=== PATIENT | female | born 1930 | race Caucasian/White ===

== ENCOUNTER 2017-07-29 19:52 | Inpatient (IN) | payer MEDICARE, MEDICAID ==
[~2017-07-29] VITALS: Ht 157.5 cm; Wt 61.2 kg
[2017-07-29] MEDS ORDERED: PANTOPRAZOLE 40 MG VIAL IV ONE (20:00)
[2017-07-29] MEDS ORDERED: IV NS 0.9% 500 ML BAG IV ONE (20:00)
[2017-07-29] MEDS ORDERED: WATER FOR INJECTION,STERILE 10 ML ONE (20:17)
[2017-07-29] MEDS ORDERED: PANTOPRAZOLE 40 MG VIAL ONE ×2 (20:17→22:47)
[2017-07-29 20:34] LABS: CALCIUM, SERUM 9.6 mg/dL (8.5-10.1); CARBON DIOXIDE 24 mmol/L (21-32); CHLORIDE 102 mmol/L (98-107); CREATININE 0.9 mg/dL (0.6-1.3); GLUCOSE 295 mg/dL (74-106); POTASSIUM 3.8 mmol/L (3.5-5.1); SODIUM SERUM 136 mmol/L (136-145); UREA NITROGEN, BLOOD 33 mg/dL (7-18)
[2017-07-29 20:40] LABS: ALANINE AMINOTRANSFERASE 18 U/L (12-78); ALBUMIN 3.3 g/dL (3.4-5.0); ALKALINE PHOSPHATASE 163 U/L (46-116); ASPARTATE AMINOTRANSFERASE 19 U/L (15-37); BILIRUBIN,DIRECT 0.1 mg/dL (0.0-0.2); BILIRUBIN,TOTAL 0.4 mg/dL (0.2-1.0)
[2017-07-29 20:44] LABS: BASOPHILS % (AUTO) 0.3 % (0.0-2.0); EOSINOPHILS # (AUTO) 0.4 /CMM (0.0-0.7); EOSINOPHILS % (AUTO) 2.9 % (0.0-6.0); HEMATOCRIT 33 % (33-45); HEMOGLOBIN 10.8 g/dL (11.5-14.8); LYMPHOCYTES # (AUTO) 1.5 /CMM (0.8-4.8); LYMPHOCYTES % (AUTO) 9.9 % (20.0-44.0); MEAN CORPUSCULAR HEMOGLOBIN 28 PG (26.0-33.0); MEAN CORPUSCULAR HGB CONC 33 g/dl (31.0-36.0); MEAN CORPUSCULAR VOLUME 83 fL (82-100); MONOCYTES # (AUTO) 0.6 /CMM (0.1-1.30); MONOCYTES % (AUTO) 3.9 % (2.0-12.0); NEUTROPHILS # (AUTO) 12.5 /CMM (1.8-8.9); PLATELET COUNT (AUTO) 303 /CMM (150-450); RDW COEFFICIENT OF VARIATION 16.8 (11.5-15.0); RED BLOOD CELL COUNT(AUTO) 3.94 MIL/uL (4.0-5.2)
[2017-07-29 20:54] LABS: INR 0.95 (0.85-1.15)
[2017-07-29 20:56] LABS: TROPONIN I < 0.017 ng/mL (0.00-0.056)
[2017-07-29 21:11] LABS: APPEARANCE,URINE Slightly Cloudy (CLEAR); BILIRUBIN,URINE Negative (NEGATIVE); BLOOD, URINE Small Ery/uL (NEGATIVE); COLOR,URINE Yellow (YELLOW); KETONES,URINE Negative (NEGATIVE); LEUKOCYTE ESTERASE ,URINE Large (NEGATIVE); NITRITE, URINE Negative (NEGATIVE); PROTEIN,URINE 30 mg/dl (NEGATIVE); UGLUCOSE Negative (NEGATIVE); UROBILINOGEN,URINE 0.2 EU/dL (0.2)
[2017-07-29] MEDS ORDERED: IV NS 0.9% 1,000 ML IV PRN (21:28)
[2017-07-29] MEDS ORDERED: HYDROCODONE/APAP 5/325MG 1 EACH TABLET PO PRN (21:30)
[2017-07-29] MEDS ORDERED: MAGNESIUM HYDROXIDE 30 ML UDC PO PRN (21:30)
[2017-07-29] MEDS ORDERED: INSULIN REGULAR, HUMAN 100 UNIT/ML 10 ML VIAL SQ ONE (21:30)
[2017-07-29] MEDS ORDERED: Z GUARD REMEDY 2 OZ OINT TP PRN (21:30)
[2017-07-29] MEDS ORDERED: ONDANSETRON HCL/PF 4 MG/2 ML VIAL IVP PRN (21:30)
[2017-07-29] MEDS ORDERED: MAG HYDROX/AL HYDROX/SIMETH 30 ML UDC PO PRN (21:30)
[2017-07-29] MEDS ORDERED: ACETAMINOPHEN 325 MG TABLET PO PRN (21:30)
[2017-07-29] MEDS ORDERED: CIPROFLOXACIN HCL 500 MG TABLET PO ONE (21:30)
[2017-07-29] MEDS ORDERED: CIPROFLOXACIN HCL 500 MG TABLET ONE (21:32)
[2017-07-29] MEDS ORDERED: INSULIN REGULAR, HUMAN 100 UNIT/ML 10 ML VIAL ONE (21:32)
[2017-07-29 21:35] LABS: BACTERIA,URINE Many /HPF (None Seen); SQUAMOUS EPITHELIAL CELL,UR Few /HPF (None Seen); URINE AMORPHOUS PHOSPHATES Moderate /HPF (None Seen); WBC,URINE 21-50 /HPF (0-3)
[2017-07-29 22:00] VITALS: BP 155/78
[2017-07-29] MEDS ORDERED: PANTOPRAZOLE 80 MG in IV NS 0.9% 500 ML IV PRN (22:00)
[2017-07-29] MEDS ORDERED: DEXTROSE 50%-WATER 50 ML DISP.SYRIN IV PRN (22:00)
[2017-07-29] MEDS ORDERED: LEVOFLOXACIN 500 MG /D5W 100ML 500 MG in PREMIX 1 EA IV SCH (22:00)
[2017-07-29] MEDS: BLOOD SUGAR DIAGNOSTIC 1 EACH STRIP IN SCH (22:43)
[2017-07-29] MEDS ORDERED: LEVOFLOXACIN 500 MG /D5W 100ML 100 ML IV ONE (22:47)
[2017-07-29] MEDS ORDERED: ONDANSETRON HCL/PF 4 MG/2 ML VIAL ONE (23:19)
[2017-07-30] MEDS ORDERED: ACET-868 GT (01:40)
[2017-07-30] MEDS ORDERED: AMLO5TAB4 GT (02:10)
[2017-07-30] MEDS ORDERED: NA P133E RC (02:10)
[2017-07-30] MEDS ORDERED: DOCU-159 RC (02:10)
[2017-07-30] MEDS ORDERED: MAGN400O6 GT (02:10)
[2017-07-30 04:00] VITALS: BP 153/79
[2017-07-30 07:07] LABS: BASOPHILS % (AUTO) 0.2 % (0.0-2.0); EOSINOPHILS # (AUTO) 0.1 /CMM (0.0-0.7); EOSINOPHILS % (AUTO) 0.5 % (0.0-6.0); HEMATOCRIT 23 % (33-45); HEMOGLOBIN 9.2 g/dL (11.5-14.8); LYMPHOCYTES % (AUTO) 7.9 % (20.0-44.0); MEAN CORPUSCULAR HEMOGLOBIN 35 PG (26.0-33.0); MEAN CORPUSCULAR HGB CONC 40 g/dl (31.0-36.0); MEAN CORPUSCULAR VOLUME 88 fL (82-100); MONOCYTES # (AUTO) 0.5 /CMM (0.1-1.30); MONOCYTES % (AUTO) 3.9 % (2.0-12.0); NEUTROPHILS # (AUTO) 11.6 /CMM (1.8-8.9); NEUTROPHILS % (AUTO) 87.5 % (43.0-81.0); PLATELET COUNT (AUTO) 272 /CMM (150-450); RDW COEFFICIENT OF VARIATION 17.4 (11.5-15.0); RED BLOOD CELL COUNT(AUTO) 2.63 MIL/uL (4.0-5.2); WHITE BLOOD COUNT (AUTO) 13.3 K/uL (4.3-11.0)
[2017-07-30] MEDS ORDERED: NUT.237L30 GT (07:44)
[2017-07-30] MEDS ORDERED: INSU100V7 SQ (07:44)
[2017-07-30] MEDS ORDERED: TRAM50TA GT (07:44)
[2017-07-30] MEDS ORDERED: SERT25TA GT (07:44)
[2017-07-30] MEDS ORDERED: CILO100T GT (07:44)
[2017-07-30] MEDS ORDERED: BLOO-668 IN (07:44)
[2017-07-30] MEDS ORDERED: PANT40SU2 GT (07:44)
[2017-07-30] MEDS ORDERED: HYDR-3326 GT (07:44)
[2017-07-30 07:53] LABS: CALCIUM, SERUM 8.4 mg/dL (8.5-10.1); CARBON DIOXIDE 23 mmol/L (21-32); CHLORIDE 109 mmol/L (98-107); CREATININE 0.9 mg/dL (0.6-1.3); GLUCOSE 127 mg/dL (74-106); PHOSPHORUS 3.1 mg/dL (2.5-4.9); POTASSIUM 4.2 mmol/L (3.5-5.1); SODIUM SERUM 142 mmol/L (136-145); UREA NITROGEN, BLOOD 28 mg/dL (7-18)
[2017-07-30 08:00] VITALS: BP 130/72
[2017-07-30] MEDS: BLOOD SUGAR DIAGNOSTIC 1 EACH STRIP IN SCH ×4 (08:11→21:14)
[2017-07-30 12:00] VITALS: BP 130/72
[2017-07-30] MEDS ORDERED: DOCUSATE SODIUM 100 MG CAPSULE PO PRN (12:30)
[2017-07-30] MEDS ORDERED: NA PHOS,M-B/NA PHOS,DI-BA 1 EA ENEMA RC PRN (12:30)
[2017-07-30] MEDS ORDERED: ACETAMINOPHEN 325 MG TABLET PO PRN (12:30)
[2017-07-30] MEDS: AMLODIPINE BESYLATE 5 MG TABLET GT SCH (12:30)
[2017-07-30] MEDS ORDERED: MAGNESIUM HYDROXIDE 30 ML UDC GT PRN (12:30)
[2017-07-30] MEDS ORDERED: IV D5/ 0.9% NACL 1,000 ML IV ONE (15:00)
[2017-07-30] MEDS: PANTOPRAZOLE 40 MG VIAL IV SCH ×2 (15:14→22:17)
[2017-07-30 16:00] VITALS: BP 120/42
[2017-07-30 20:00] VITALS: BP 108/46
[2017-07-30] MEDS: LEVOFLOXACIN 500 MG /D5W 100ML 500 MG in PREMIX 1 EA IV SCH (21:05)
[2017-07-31] VITALS (7 sets, daily range): BP systolic 90–146; BP diastolic 11–79
[2017-07-31] MEDS: BLOOD SUGAR DIAGNOSTIC 1 EACH STRIP IN SCH ×4 (07:20→21:27)
[2017-07-31] MEDS: AMLODIPINE BESYLATE 5 MG TABLET GT SCH (08:49)
[2017-07-31] MEDS: PANTOPRAZOLE 40 MG VIAL IV SCH ×2 (08:52→20:56)
[2017-07-31] MEDS: INSULIN REGULAR, HUMAN 100 UNIT/ML 3 ML VIAL SQ PRN ×3 (12:32→21:27)
[2017-07-31] MEDS: METRONIDAZOLE 500MG/ NS 100ML 500 MG in PREMIX 1 EA IV SCH ×2 (13:51→20:57)
[2017-07-31] MEDS ORDERED: diphenhydrAMINE HCL ELIX 25 MG/10 ML UDC GT PRN (16:00)
[2017-07-31] MEDS: VANCOMYCIN HCL 125 MG/2.5 ML ORAL.SUSP GT SCH (17:52)
[2017-07-31] MEDS: GLYTROL 1,000 ML BAG GT PRN (20:46)
[2017-07-31] MEDS: LEVOFLOXACIN 500 MG /D5W 100ML 500 MG in PREMIX 1 EA IV SCH (22:21)
[2017-08-01] VITALS: BP 143/47
[2017-08-01] MEDS: VANCOMYCIN HCL 125 MG/2.5 ML ORAL.SUSP GT SCH ×5 (00:05→23:18)
[2017-08-01] MEDS: IV D5/ 0.9% NACL 1,000 ML IV PRN ×2 (00:06→16:41)
[2017-08-01 04:00] VITALS: BP 142/44
[2017-08-01] MEDS: METRONIDAZOLE 500MG/ NS 100ML 500 MG in PREMIX 1 EA IV SCH ×3 (05:02→21:20)
[2017-08-01 08:00] VITALS: BP 117/45
[2017-08-01] MEDS: BLOOD SUGAR DIAGNOSTIC 1 EACH STRIP IN SCH ×4 (08:09→21:23)
[2017-08-01] MEDS: AMLODIPINE BESYLATE 5 MG TABLET GT SCH (08:09)
[2017-08-01] MEDS: PANTOPRAZOLE 40 MG VIAL IV SCH ×2 (08:09→16:41)
[2017-08-01] MEDS: SUCRALFATE 1 G/10 ML UDC GT SCH ×2 (11:40→16:41)
[2017-08-01 12:00] VITALS: BP 129/45
[2017-08-01] MEDS: INSULIN REGULAR, HUMAN 100 UNIT/ML 3 ML VIAL SQ PRN ×2 (12:15→21:31)
[2017-08-01 13:15] LABS: BASOPHILS % (AUTO) 0.1 % (0.0-2.0); EOSINOPHILS # (AUTO) 0.9 /CMM (0.0-0.7); EOSINOPHILS % (AUTO) 11.4 % (0.0-6.0); HEMATOCRIT 27 % (33-45); HEMOGLOBIN 8.6 g/dL (11.5-14.8); LYMPHOCYTES # (AUTO) 1.3 /CMM (0.8-4.8); LYMPHOCYTES % (AUTO) 16.5 % (20.0-44.0); MEAN CORPUSCULAR HEMOGLOBIN 27 PG (26.0-33.0); MEAN CORPUSCULAR VOLUME 84 fL (82-100); MONOCYTES # (AUTO) 0.5 /CMM (0.1-1.30); MONOCYTES % (AUTO) 6.7 % (2.0-12.0); NEUTROPHILS # (AUTO) 5.1 /CMM (1.8-8.9); NEUTROPHILS % (AUTO) 65.3 % (43.0-81.0); PLATELET COUNT (AUTO) 215 /CMM (150-450); RDW COEFFICIENT OF VARIATION 17.8 (11.5-15.0); RED BLOOD CELL COUNT(AUTO) 3.24 MIL/uL (4.0-5.2); WHITE BLOOD COUNT (AUTO) 7.8 K/uL (4.3-11.0)
[2017-08-01 13:18] LABS: MEAN CORPUSCULAR HGB CONC 32 g/dl (31.0-36.0)
[2017-08-01] MEDS: MUPIROCIN OINT 2% 22 GM TUBE SCH ×2 (14:23→20:40)
[2017-08-01 16:00] VITALS: BP 140/53
[2017-08-01] MEDS: GLYTROL 1,000 ML BAG GT PRN (16:41)
[2017-08-01 21:05] VITALS: BP 129/87
[2017-08-01] MEDS: LEVOFLOXACIN 500 MG /D5W 100ML 500 MG in PREMIX 1 EA IV SCH (22:12)
[2017-08-02 04:00] VITALS: BP 114/77
[2017-08-02] MEDS: VANCOMYCIN HCL 125 MG/2.5 ML ORAL.SUSP GT SCH ×3 (05:22→17:03)
[2017-08-02] MEDS: METRONIDAZOLE 500MG/ NS 100ML 500 MG in PREMIX 1 EA IV SCH ×3 (05:22→21:40)
[2017-08-02] MEDS: BLOOD SUGAR DIAGNOSTIC 1 EACH STRIP IN SCH ×4 (05:26→21:42)
[2017-08-02] MEDS: INSULIN REGULAR, HUMAN 100 UNIT/ML 3 ML VIAL SQ PRN ×3 (05:30→21:44)
[2017-08-02] MEDS: GLYTROL 1,000 ML BAG GT PRN (05:31)
[2017-08-02 07:56] LABS: BASOPHILS % (AUTO) 0.4 % (0.0-2.0); EOSINOPHILS # (AUTO) 1.4 /CMM (0.0-0.7); EOSINOPHILS % (AUTO) 15.2 % (0.0-6.0); HEMATOCRIT 29 % (33-45); HEMOGLOBIN 9.3 g/dL (11.5-14.8); LYMPHOCYTES # (AUTO) 1.1 /CMM (0.8-4.8); LYMPHOCYTES % (AUTO) 12.5 % (20.0-44.0); MEAN CORPUSCULAR HEMOGLOBIN 27 PG (26.0-33.0); MEAN CORPUSCULAR VOLUME 85 fL (82-100); MONOCYTES # (AUTO) 0.5 /CMM (0.1-1.30); MONOCYTES % (AUTO) 5.9 % (2.0-12.0); PLATELET COUNT (AUTO) 244 /CMM (150-450); RED BLOOD CELL COUNT(AUTO) 3.45 MIL/uL (4.0-5.2); WHITE BLOOD COUNT (AUTO) 9.1 K/uL (4.3-11.0)
[2017-08-02 07:58] LABS: MEAN CORPUSCULAR HGB CONC 32 g/dl (31.0-36.0)
[2017-08-02 08:00] VITALS: BP 93/70
[2017-08-02] MEDS: SUCRALFATE 1 G/10 ML UDC GT SCH ×3 (08:59→16:58)
[2017-08-02] MEDS: PANTOPRAZOLE 40 MG VIAL IV SCH ×2 (09:00→16:58)
[2017-08-02] MEDS: AMLODIPINE BESYLATE 5 MG TABLET GT SCH (09:00)
[2017-08-02] MEDS: MUPIROCIN OINT 2% 22 GM TUBE SCH ×2 (09:01→21:43)
[2017-08-02] MEDS: IV D5/ 0.9% NACL 1,000 ML IV PRN (13:32)
[2017-08-02 16:00] VITALS: BP 139/99
[2017-08-02 20:00] VITALS: BP 137/54
[2017-08-02 20:24] VITALS: BP 137/54
[2017-08-02] MEDS: LEVOFLOXACIN 500 MG /D5W 100ML 500 MG in PREMIX 1 EA IV SCH (22:55)
[2017-08-03] MEDS: VANCOMYCIN HCL 125 MG/2.5 ML ORAL.SUSP GT SCH ×4 (00:31→17:00)
[2017-08-03] MEDS: METRONIDAZOLE 500MG/ NS 100ML 500 MG in PREMIX 1 EA IV SCH (05:07)
[2017-08-03] MEDS: GLYTROL 1,000 ML BAG GT PRN (05:08)
[2017-08-03] MEDS: BLOOD SUGAR DIAGNOSTIC 1 EACH STRIP IN SCH ×4 (06:43→22:14)
[2017-08-03] MEDS: INSULIN REGULAR, HUMAN 100 UNIT/ML 3 ML VIAL SQ PRN ×4 (06:44→23:08)
[2017-08-03 08:00] VITALS: BP 150/77
[2017-08-03 08:08] LABS: CALCIUM, SERUM 8.1 mg/dL (8.5-10.1); CARBON DIOXIDE 19 mmol/L (21-32); CHLORIDE 110 mmol/L (98-107); CREATININE 0.6 mg/dL (0.6-1.3); GLUCOSE 157 mg/dL (74-106); POTASSIUM 2.9 mmol/L (3.5-5.1); SODIUM SERUM 141 mmol/L (136-145); UREA NITROGEN, BLOOD 13 mg/dL (7-18)
[2017-08-03] MEDS: PANTOPRAZOLE 40 MG VIAL IV SCH ×2 (08:37→16:36)
[2017-08-03] MEDS: SUCRALFATE 1 G/10 ML UDC GT SCH ×3 (08:37→16:36)
[2017-08-03] MEDS: AMLODIPINE BESYLATE 5 MG TABLET GT SCH (08:37)
[2017-08-03] MEDS: MUPIROCIN OINT 2% 22 GM TUBE SCH ×2 (08:38→22:13)
[2017-08-03 08:52] LABS: BASOPHILS % (AUTO) 0.2 % (0.0-2.0); EOSINOPHILS # (AUTO) 1.3 /CMM (0.0-0.7); EOSINOPHILS % (AUTO) 14.4 % (0.0-6.0); HEMATOCRIT 26 % (33-45); HEMOGLOBIN 9.3 g/dL (11.5-14.8); LYMPHOCYTES # (AUTO) 1.5 /CMM (0.8-4.8); LYMPHOCYTES % (AUTO) 16.9 % (20.0-44.0); MEAN CORPUSCULAR HEMOGLOBIN 32 PG (26.0-33.0); MEAN CORPUSCULAR HGB CONC 35 g/dl (31.0-36.0); MEAN CORPUSCULAR VOLUME 91 fL (82-100); MONOCYTES # (AUTO) 0.6 /CMM (0.1-1.30); MONOCYTES % (AUTO) 6.3 % (2.0-12.0); NEUTROPHILS # (AUTO) 5.7 /CMM (1.8-8.9); NEUTROPHILS % (AUTO) 62.2 % (43.0-81.0); PLATELET COUNT (AUTO) 262 /CMM (150-450); RDW COEFFICIENT OF VARIATION 17.6 (11.5-15.0); WHITE BLOOD COUNT (AUTO) 9.2 K/uL (4.3-11.0)
[2017-08-03] MEDS: POTASSIUM CHLORIDE 20 MEQ POWDER PACKET GT SCH ×3 (11:48→13:21)
[2017-08-03 12:13] LABS: EOSINOPHILS % (MANUAL) 25 % (0-4); LYMPHOCYTES % (MANUAL) 13 % (16-48); MONOCYTES % (MANUAL) 3 % (0-11.0); NEUTROPHILS % (MANUAL) 59 (42-76)
[2017-08-03] MEDS: METRONIDAZOLE 500 MG TABLET GT SCH ×2 (12:25→22:13)
[2017-08-03] MEDS: IV D5/ 0.9% NACL 1,000 ML IV PRN (13:21)
[2017-08-03 16:00] VITALS: BP 128/51
[2017-08-03 20:00] VITALS: BP 133/53
[2017-08-03] MEDS ORDERED: LEVOFLOXACIN (500MG) 500 MG TABLET GT SCH (22:00)
[2017-08-04] MEDS: VANCOMYCIN HCL 125 MG/2.5 ML ORAL.SUSP GT SCH ×3 (00:53→12:17)
[2017-08-04] MEDS: GLYTROL 1,000 ML BAG GT PRN (02:07)
[2017-08-04] MEDS: IV D5/ 0.9% NACL 1,000 ML IV PRN (03:53)
[2017-08-04] MEDS: METRONIDAZOLE 500 MG TABLET GT SCH ×2 (04:54→12:16)
[2017-08-04 07:43] LABS: CALCIUM, SERUM 7.6 mg/dL (8.5-10.1); CARBON DIOXIDE 20 mmol/L (21-32); CHLORIDE 112 mmol/L (98-107); CREATININE 0.6 mg/dL (0.6-1.3); GLUCOSE 218 mg/dL (74-106); MAGNESIUM 1.8 mg/dL (1.8-2.4); POTASSIUM 3.8 mmol/L (3.5-5.1); SODIUM SERUM 140 mmol/L (136-145); UREA NITROGEN, BLOOD 15 mg/dL (7-18)
[2017-08-04 08:00] VITALS: BP 117/29
[2017-08-04] MEDS: PANTOPRAZOLE 40 MG VIAL IV SCH (08:15)
[2017-08-04] MEDS: BLOOD SUGAR DIAGNOSTIC 1 EACH STRIP IN SCH ×2 (08:15→12:17)
[2017-08-04] MEDS: SUCRALFATE 1 G/10 ML UDC GT SCH ×2 (08:15→12:16)
[2017-08-04 08:16] VITALS: BP 117/79
[2017-08-04] MEDS: MUPIROCIN OINT 2% 22 GM TUBE SCH (08:16)
[2017-08-04] MEDS: AMLODIPINE BESYLATE 5 MG TABLET GT SCH (08:16)
[2017-08-04 08:17] LABS: HEMOGLOBIN 8.4 g/dL (11.5-14.8); LYMPHOCYTES # (AUTO) 1.2 /CMM (0.8-4.8)
[2017-08-04 08:36] LABS: BASOPHILS % (AUTO) 0.6 % (0.0-2.0); EOSINOPHILS # (AUTO) 1.4 /CMM (0.0-0.7); EOSINOPHILS % (AUTO) 18.4 % (0.0-6.0); HEMATOCRIT 26 % (33-45); LYMPHOCYTES % (AUTO) 16.2 % (20.0-44.0); MEAN CORPUSCULAR HEMOGLOBIN 27 PG (26.0-33.0); MEAN CORPUSCULAR VOLUME 84 fL (82-100); MONOCYTES # (AUTO) 0.6 /CMM (0.1-1.30); MONOCYTES % (AUTO) 7.9 % (2.0-12.0); NEUTROPHILS # (AUTO) 4.2 /CMM (1.8-8.9); NEUTROPHILS % (AUTO) 56.9 % (43.0-81.0); PLATELET COUNT (AUTO) 153 /CMM (150-450); RDW COEFFICIENT OF VARIATION 18.6 (11.5-15.0); RED BLOOD CELL COUNT(AUTO) 3.13 MIL/uL (4.0-5.2); WHITE BLOOD COUNT (AUTO) 7.4 K/uL (4.3-11.0)
[2017-08-04 08:38] LABS: MEAN CORPUSCULAR HGB CONC 32 g/dl (31.0-36.0)
== END 2017-08-04 16:43 | DRG 391 ==
LOC: ER 19:53 → TELE1 21:30 → MEDSG1 08-01 12:44
PROVIDERS: ADMIT Internal Medicine; ATTEND Internal Medicine
PROC: 0DD68ZX Extraction of Stomach, Via Natural or Artificial Opening Endoscopic, Diagnostic (ICD-10-PCS; 2017-08-01)
PROC: 0DD58ZX Extraction of Esophagus, Via Natural or Artificial Opening Endoscopic, Diagnostic (ICD-10-PCS; principal; 2017-08-01 10:25)
DX: K29.70 Gastritis, unspecified, without bleeding (principal); G93.40 Encephalopathy, unspecified; E44.0 Moderate protein-calorie malnutrition; A04.72 Enterocolitis due to Clostridium difficile, not specified as recurrent; R53.2 Functional quadriplegia; D68.59 Other primary thrombophilia; N39.0 Urinary tract infection, site not specified; D63.8 Anemia in other chronic diseases classified elsewhere; E11.9 Type 2 diabetes mellitus without complications; E78.5 Hyperlipidemia, unspecified; F03.90 Unspecified dementia, unspecified severity, without behavioral disturbance, psychotic disturbance, mood disturbance, and anxiety; I10 Essential (primary) hypertension; Z88.0 Allergy status to penicillin; Z89.511 Acquired absence of right leg below knee; Z87.11 Personal history of peptic ulcer disease; I25.10 Atherosclerotic heart disease of native coronary artery without angina pectoris; I70.0 Atherosclerosis of aorta; L98.9 Disorder of the skin and subcutaneous tissue, unspecified; Z79.82 Long term (current) use of aspirin; F29 Unspecified psychosis not due to a substance or known physiological condition; K21.0 Gastro-esophageal reflux disease with esophagitis; R13.10 Dysphagia, unspecified; B96.89 Other specified bacterial agents as the cause of diseases classified elsewhere; Z22.322 Carrier or suspected carrier of Methicillin resistant Staphylococcus aureus
CPT/HCPCS: 36415; 71045-TC; 80048-TC; 80076-TC; 81000-TC; 82272-TC; 82962-TC; 83735-TC; 84100-TC; 84484-TC; 85025-TC; 85730-TC; 86850-TC; 87081-TC; 87086-TC; A4216; A4606; C9113; J1815; J1956; J2405; J3490; J7030; J7040; J7042; Q0163; Z7610

== ENCOUNTER 2018-03-31 04:09 | Inpatient (IN) | payer MEDICARE, MEDICAID ==
[2018-03-31] VITALS (128 sets, daily range): BP systolic 57–151; BP diastolic 12–81
[~2018-03-31] VITALS: Ht 154.9 cm; Wt 56.7 kg
[~2018-03-31 04:09] MED LIST: ACET-868 GT; AMLO5TAB4 GT; BLOO-668 IN; CILO100T GT; DOCU-159 RC; HYDR-3974 GT; INSU100V7 SQ; MAGN400O6 GT; NA P133E RC; NUT.237L30 GT; PANT40SU2 GT; SERT25TA GT; TRAM50TA GT
--- NOTE | 2018-03-31 04:12 | NUR ---
BIB RA FROM SNF C/C OF HYPOTENSION. [place] SPEAKING ONLY. AA/OX1 TO NAME ONLY PER CARDIOPULMONARY SUPERVISOR, REPETATIVE STATEMENTS. NO S/S OF SOB. SKIN JAUNDICE, WARM, MOIST. NG TUBE PRESENT. SACRAL BEDSORE PRESENT. BRIGHT BLOOD STOOL PRESENT. YELLOW CLOUDY URINE NOTED. RT LEG AMPUTATION. LT LEG CONTRACTURE. POSITIVE HYPOTENSION SBP 87, ST 105. RESPIRATION 35 REGULAR. O2SAT 96% ROOM. 1L NS INITIATED PER ORDERED BY MD. WILL CONTINUE TO MONITOR.
[2018-03-31 04:56] LABS: APPEARANCE,URINE TURBID (CLEAR); COLOR,URINE YELLOW (YELLOW)
[2018-03-31 04:57] LABS: BILIRUBIN,URINE NEGATIVE (NEGATIVE); BLOOD, URINE 3+ Ery/uL (NEGATIVE); KETONES,URINE NEGATIVE (NEGATIVE); PH,URINE 7.5 (5.0-8.0); PROTEIN,URINE 1+ mg/dl (NEGATIVE); UGLUCOSE NEGATIVE (NEGATIVE); UROBILINOGEN,URINE 0.2 EU/dL (0.2)
[2018-03-31 04:58] LABS: LEUKOCYTE ESTERASE ,URINE 3+ (NEGATIVE); NITRITE, URINE POSITIVE (NEGATIVE)
--- NOTE | 2018-03-31 04:59 | NUR ---
XRAY AT BEDSIDE
[2018-03-31] MEDS ORDERED: IV NS 0.9% 1,000 ML BAG IV ONE ×4 (05:00→09:25)
[2018-03-31 05:07] LABS: CALCIUM, SERUM 10.2 mg/dL (8.5-10.1); CARBON DIOXIDE 12 mmol/L (21-32); CHLORIDE 102 mmol/L (98-107); CREATININE 3.1 mg/dL (0.6-1.3); GLUCOSE 134 mg/dL (74-106); INR 1.19 (0.87-1.13); SODIUM SERUM 143 mmol/L (136-145); UREA NITROGEN, BLOOD 50 mg/dL (7-18)
[2018-03-31 05:10] LABS: BACTERIA,URINE Few /HPF (None Seen); SQUAMOUS EPITHELIAL CELL,UR Few /HPF (None Seen); WBC,URINE TOO NUMEROUS TO COUN /HPF (0-3)
[2018-03-31 05:12] LABS: ALKALINE PHOSPHATASE 156 U/L (46-116); ASPARTATE AMINOTRANSFERASE 110 U/L (15-37); BILIRUBIN,DIRECT 0.2 mg/dL (0.0-0.2); BILIRUBIN,TOTAL 0.6 mg/dL (0.2-1.0); TOTAL PROTEIN, SERUM 7.3 g/dL (6.4-8.2)
[2018-03-31] MEDS ORDERED: PANTOPRAZOLE 40 MG VIAL ONE (05:16)
[2018-03-31] MEDS ORDERED: LEVOFLOXACIN 750 MG /D5W 150ML 150 ML IV ONE ×2 (05:16→05:30)
[2018-03-31] MEDS ORDERED: NOREPINEPHRINE 4 MG/4 ML AMPUL IV ONE (05:17)
[2018-03-31] MEDS ORDERED: ACETAMINOPHEN 650 MG/SUPP.RECT RC ONE ×2 (05:18→05:30)
[2018-03-31 05:20] LABS: TROPONIN I 0.102 ng/mL (0.00-0.056)
[2018-03-31] MEDS ORDERED: NOREPINEPHRINE 8 MG in IV D5W 500 ML IV PRN ×2 (05:30→07:00)
[2018-03-31] MEDS ORDERED: CEFTRIAXONE 1GM BAG (ER ONLY) 50 ML IV ONE (05:30)
[2018-03-31] MEDS ORDERED: PANTOPRAZOLE 80 MG in IV NS 0.9% 500 ML IV PRN (05:30)
[2018-03-31] MEDS ORDERED: PANTOPRAZOLE 80 MG in IV NS 0.9% 100 ML IV ONE (05:30)
--- NOTE | 2018-03-31 05:30 | NUR ---
INITIATED NOREPI DRIP PER MD AT 12MCG/ MIN.
[2018-03-31 05:34] LABS: ALANINE AMINOTRANSFERASE 69 U/L (12-78); EOSINOPHILS % (AUTO) 0.1 % (0.0-6.0); HEMATOCRIT 38 % (33-45); LYMPHOCYTES % (AUTO) 2.2 % (20.0-44.0); MEAN CORPUSCULAR HGB CONC 32 g/dl (31.0-36.0); MEAN CORPUSCULAR VOLUME 85 fL (82-100); MONOCYTES # (AUTO) 0.1 /CMM (0.1-1.30); MONOCYTES % (AUTO) 0.2 % (2.0-12.0); NEUTROPHILS # (AUTO) 43.8 /CMM (1.8-8.9); NEUTROPHILS % (AUTO) 97.5 % (43.0-81.0); PLATELET COUNT (AUTO) 104 /CMM (150-450); RDW COEFFICIENT OF VARIATION 19.5 (11.5-15.0); RED BLOOD CELL COUNT(AUTO) 4.43 MIL/uL (4.0-5.2)
[2018-03-31 05:35] LABS: WHITE BLOOD COUNT (AUTO) 44.9 K/uL (4.3-11.0)
--- NOTE | 2018-03-31 05:45 | NUR ---
RT NECK INTERAL JUGULAR CENTRAL LINE INSERTED BY .
--- NOTE | 2018-03-31 05:46 | NUR ---
NOREPI RUNNING THROUGHT CENTRAL LINE
[2018-03-31 05:51] LABS: BAND % (MANUAL) 12 % (0.0-5.0); LYMPHOCYTES % (MANUAL) 3 % (16-48); METAMYELOCYTES % 3 % (0-0); MYELOCYTES % 1 % (0-0); NEUTROPHILS % (MANUAL) 81 (42-76)
--- NOTE | 2018-03-31 06:02 | NUR ---
Vikas bradley in [facility] - 03/31/18 at 0603 by AALIYAH 16 [place] OCCITAN CATHETER INSERTED DRAINING FREELY TO GRAVITY.
[2018-03-31] MEDS ORDERED: CEFTRIAXONE 1 G VIAL ONE (06:05)
--- NOTE | 2018-03-31 06:25 | NUR ---
PRN/ICU-ADMITTED THIS 88 Y/O FEMALE FROM ER PER ACLS PROTOCOL, ACCOMPANIED BY ER STAFF. ROUTINE ICU ADMISSION CARE INITIATED. NURSING FOCUS: INFECTION R/T DIAGNOSIS OF SEPSIS. PT. AWAKE, CONFUSED, MONGOLIAN SPEAKING. PT. UNKEPT,W/ LARGE AMOUNT OF PASTY FOUL SMELLING BM. COMPLETE BED BATH GIVEN. NOTED SKIN ISSUES. REFER TO WOUND PHOTO FOR DETAILS. WILL CONTINUE TO MONITOR PER PROTOCOL.
--- NOTE | 2018-03-31 06:27 | NUR ---
PT TRANSPORTED TO ICU STABLE CONDITION. ABNER ENDORSED TO ASSISTANT WINEMAKERFRANCIS WALLACE FOR ADMIN. PT TRANSPORTED VIA ACLS PROTOCOL.
[2018-03-31] MEDS ORDERED: ONDANSETRON HCL/PF 4 MG/2 ML VIAL IVP PRN (07:00)
[2018-03-31] MEDS ORDERED: ACETAMINOPHEN 650 MG/SUPP.RECT RC PRN (07:00)
[2018-03-31] MEDS ORDERED: IV NS 0.9% 1,000 ML IV ONE (07:00)
--- NOTE | 2018-03-31 07:00 | NUR ---
ICU/RN- CALM, NOT IN ANY DISTRESS. REPORT GIVEN TO RN TYLER, W/ ACNP CHUCKY HERE W/ ORDER TO DO A STAT CT OF ABD./PELVIS W/O CONTRAST DUE TO PT. C/O ABDOMINAL PAIN.
[2018-03-31 07:20] LABS: MAGNESIUM 2.2 mg/dL (1.8-2.4); PHOSPHORUS 3.7 mg/dL (2.5-4.9)
[2018-03-31] MEDS ORDERED: FEE PK DOSING 1 MIN EA MC ONE (07:36)
[2018-03-31] MEDS ORDERED: MEROPENEM 500 MG in IV NS 0.9% 100 ML IV SCH (08:00)
[2018-03-31] MEDS ORDERED: MEROPENEM 500 MG in IV NS 0.9% 50 ML IV SCH ×2 (08:13→09:00)
[2018-03-31 08:49] LABS: ABG BASE EXCESS -23.2 mmol/L; ABG OXYGEN SATURATION 93.9 % (92.0-98.5); ABG PCO2 37.6 mmHg (35.0-45.0); ABG PH 6.945 (7.350-7.450); ABG PO2 107.1 mmHg (75.0-100.0); AaDO2 77.1 mmHg; COHb 0.2 % (0.5-1.5); O2Hb 92.8 % (94.0-97.0); SITE, ABG Left Brachial; VENT MODE, BG NASAL CANNULA
[2018-03-31] MEDS ORDERED: PANTOPRAZOLE 40 MG VIAL IV SCH ×2 (09:00→17:00)
[2018-03-31] MEDS ORDERED: VANCOMYCIN 500 MG in IV D5W 100 ML IV SCH (09:00)
[2018-03-31] MEDS: HYDROCORTISONE SOD SUCCINATE 100 MG/2 ML VIAL IV SCH ×3 (09:30→17:05)
--- NOTE | 2018-03-31 09:30 | NUR ---
RT PT IN RESPIRATORY DISTRESS, ER WAS CALLED FOR INTUBATION. PT WAS INTUBATED BY DR. THOMSON WITH A 7.5 ETT SECURED AT 21CM AT THE LIP LINE. EQUAL BILATERAL BREATHE SOUNDS AND CHEST RISE NOTED. POSITIVE COLOR CHANGE ON CO2 DETECTOR. PT PLACED ON VENT WITH NOTED SETTINGS BY DR. OROZCO. VENT ALARMS ARE SET AND AUDIBLE WITH BVM BY BEDSIDE. RECREATION COORDINATOR CUFF PRESSURE NOTED. VENT IS PLUGGED INTO RED OUTLET. PT SX'D LARGE THIN BROWN/BLOOD TINGED SECRETIONS. WILL CONTINUE TO MONITOR. Addendum: 03/31/18 at 0940 by SARA VILLANUEVA RT Amended: Links added.
[2018-03-31] MEDS ORDERED: IV D5/ 0.9% NACL 1,000 ML IV PRN (09:41)
[2018-03-31] MEDS: PROPOFOL 100 ML IV PRN ×4 (09:43→22:04)
--- NOTE | 2018-03-31 10:00 | NUR ---
INTUBATION PATIENT NOTED TO BE IN RESPIRATORY DISTRESS, NONREBREATHER 15 L APPLIED TO PATIENT- INTUBATION ORDER PER DR OROZCO. DAUGHTER, TIBURCIO SANCHEZ, AT BEDSIDE AGREED TO INTUBATION DR THOMSON AT BEDSIDE 1 L BOLUS NS PER HIS ORDERS ALONGSIDE LEVOPHED 03/25- PER HIS ORDERS, ETOMIDATE 20 MG PUSHED FOLLOWED BY SUCCINYLCHOLINE 120 MG PATIENT INTUBATED AT 09- COLOR CHANGE NOTED ON PATIENT. BILATERAL BREATH SOUNDS AND CHEST RISE LEVOPHED TITRATED BY 2 MCG Q [address] SHEFFIELD AND ERNESTO WHO WERE AT BEDSIDE PRIOR TO INTUBATION- SEE IV SPREADSHEETS FOR DETAILS PER DR OROZCO, STAT XRAY STAT ABG RESTRAINTS PROPOFOL DRIP TO BE TITRATED PER ORDERS
--- NOTE | 2018-03-31 10:00 | NUR ---
INTUBATION PATIENT NOTED TO BE IN RESPIRATORY DISTRESS, NONREBREATHER 15 L APPLIED TO PATIENT- INTUBATION ORDER PER DR OROZCO. DAUGHTER, TIBURCIO SANCHEZ, AT BEDSIDE AGREED TO INTUBATION DR THOMSON AT BEDSIDE 1 L BOLUS NS PER HIS ORDERS ALONGSIDE LEVOPHED 03/25- PER HIS ORDERS, ETOMIDATE 20 MG PUSHED FOLLOWED BY SUCCINYLCHOLINE 120 MG PATIENT INTUBATED AT 09- COLOR CHANGE NOTED ON PATIENT. BILATERAL BREATH SOUNDS AND CHEST RISE PER DR OROZCO, STAT XRAY STAT ABG RESTRAINTS PROPOFOL DRIP TO BE TITRATED PER ORDERS
[2018-03-31] MEDS ORDERED: FERR220S17 GT (10:03)
[2018-03-31] MEDS ORDERED: MULT-447 GT (10:03)
[2018-03-31] MEDS ORDERED: INSU100V3 SQ (10:03)
[2018-03-31] MEDS ORDERED: DEXL60CA3 PO (10:03)
[2018-03-31] MEDS ORDERED: SUCR1ORA4 GT (10:03)
[2018-03-31] MEDS ORDERED: AMIN30LI2 GT (10:03)
--- NOTE | 2018-03-31 10:10 | NUR ---
RT ETT PULLED BACK 3CM PER DR. OROZCO ORDERS. ETT ADJUSTED FROM 21CM TO 18CM AT THE LIP LINE. EQUAL BILATERAL BREATHE SOUNDS AND CHEST RISE NOTED. RN NOTIFIED AND AWARE, WILL CONTINUE TO MONITOR.
--- NOTE | 2018-03-31 10:20 | NUR ---
CODE STATUS DAUGHTER OF PATIENT, TIBURCIO, WISHES PATIENT TO REMAIN FULL CODE AT THE MOMENT DESPITE WHAT SHE TOLD DR OROZCO SHE WISHES FOR PATIENT TO REMAIN FULL CODE TILL SHE CONSULTS WITH HER KIDS BENEFITS AND RISKS EXPLAINED. WISHES CONFIRMED. TELEPHONE OPERATOR CHIEFFRANCIS HAQUE NOTIFIED
[2018-03-31] MEDS ORDERED: ETOMIDATE 2 MG/ML VIAL ONE (10:55)
[2018-03-31] MEDS ORDERED: SUCCINYLCHOLINE CHLORIDE 20 MG/ML VIAL ONE (10:55)
--- NOTE | 2018-03-31 10:58 | NUR ---
RT ETT PULLED BACK 2.5CM PER DR. OROZCO ORDERS. ETT ADJUSTED FROM 18CM TO 15.5CM AT THE LIP LINE. EQUAL BILATERAL BREATHE SOUNDS AND CHEST RISE NOTED. RN NOTIFIED AND AWARE, WILL CONTINUE TO MONITOR.
--- NOTE | 2018-03-31 11:05 | NUR ---
CENTRAL LINE ADJUSTED BY DR GRANADOS- PER DR GRANADOS OK TO USE CENTRAL LINE
--- NOTE | 2018-03-31 11:06 | NUR ---
DR GRANADOS ABLE TO VIEW CHEST XRAY POST CENTRAL LINE ADJUSTMENT BY HIM
[2018-03-31] MEDS: NOREPINEPHRINE 8 MG in IV D5W 500 ML IV PRN ×2 (11:36→13:24)
--- NOTE | 2018-03-31 11:38 | NUR ---
GRABIEL LOCKE NOTIFIED OF BLOOD PRESSURE READINGS PER HIS ORDERS, START PATIENT ON LATOYA DRIP VERBAL READBACK DONE
[2018-03-31] MEDS: PHENYLEPHRINE 40 MG in IV D5W 250 ML IV PRN ×2 (11:52→16:11)
--- NOTE | 2018-03-31 12:00 | NUR ---
CORTISOL LEVELS PENDING INITIAL DOSE MISSED TO LAB PENDING WILL ADMINISTER FOR NOW PER MD AND WILL NOTIFY DR OROZCO OF LAB RESULT
--- NOTE | 2018-03-31 12:42 | NUR ---
PER DR ANTUNEZ DISCONTINUE IV PROTONIX - OK TO DO BID PROTONIX 40 MG VERBAL READBACK DONE
--- NOTE | 2018-03-31 12:46 | NUR ---
DR OROZCO NOTIFIED OF ABG RESULTS- PER HIS ORDERS 2 AMPULES OF SODIUM BICARBONATE ABG AT 1600 VERBAL READBACK DONE
[2018-03-31 12:57] LABS: ABG BASE EXCESS -25.1 mmol/L; ABG PCO2 22.1 mmHg (35.0-45.0); ABG PH 6.973 (7.350-7.450); ABG PO2 316.6 mmHg (75.0-100.0); AaDO2 374.3 mmHg; COHb 0.3 % (0.5-1.5); MetHb 0.7 % (0.0-1.5); PEEP,BG 0 cm H2O; SITE, ABG Right Brachial; VT, ABG 450 mL
[2018-03-31] MEDS ORDERED: SODIUM BICARBONATE SYR 50 MEQ/50 ML DISP.SYRIN IV ONE ×2 (13:00→16:30)
--- NOTE | 2018-03-31 15:59 | NUR ---
PER GRABIEL LOCKE - REPEAT CBC AND BMP LACTIC ACID REPEAT LEVOPHED DOUBLE CONCENTRATION PER PROTOCOL ENEMA PRN VERBAL READBACK DONE
--- NOTE | 2018-03-31 15:59 | NUR ---
GRABIEL LOCKE GEOPHYSICAL PARTY CHIEF NOTIFIED OF LACTIC ACID VALUE
--- NOTE | 2018-03-31 15:59 | NUR ---
PER GRABIEL LOCKE - REPEAT CBC REPEAT BMP. NOTIFIED THAT NO URINE OUTPUT LACTIC ACID REPEAT LEVOPHED DOUBLE CONCENTRATION PER PROTOCOL ENEMA PRN VERBAL READBACK DONE
[2018-03-31] MEDS ORDERED: Z GUARD REMEDY 2 OZ OINT TP PRN (16:00)
[2018-03-31 16:16] LABS: ABG BASE EXCESS -23.3 mmol/L; ABG OXYGEN SATURATION 98.6 % (92.0-98.5); ABG PCO2 20.4 mmHg (35.0-45.0); ABG PH 7.048 (7.350-7.450); ABG PO2 249.2 mmHg (75.0-100.0); AaDO2 443.4 mmHg; COHb 0.3 % (0.5-1.5); MetHb 0.6 % (0.0-1.5); O2Hb 97.7 % (94.0-97.0); PEEP,BG 0 cm H2O; SITE, ABG Right Radial; VT, ABG 450 mL
--- NOTE | 2018-03-31 16:22 | NUR ---
PER DR OROZCO, GIVE D5W WITH 3 AMPULES BICARB AT RATE OF 100 CC/HOUR GIVE ADDITIONAL 2 AMPULES OF BICARB VERBAL READBACK DONE
[2018-03-31] MEDS ORDERED: NA PHOS,M-B/NA PHOS,DI-BA 1 EA ENEMA RC PRN (16:30)
[2018-03-31] MEDS: NOREPINEPHRINE 16 MG in IV D5W 500 ML IV PRN ×3 (16:58→23:16)
[2018-03-31] MEDS: Sodium Bicarbonate 150 MEQ in IV D5W 1,000 ML IV PRN (16:58)
[2018-03-31] MEDS ORDERED: MICAFUNGIN SODIUM 100 MG in IV NS 0.9% 100 ML IV SCH (17:00)
[2018-03-31] MEDS: VANCOMYCIN HCL 125 MG/2.5 ML ORAL.SUSP PO SCH (17:15)
--- NOTE | 2018-03-31 17:32 | NUR ---
CODE STATUS PATIENT'S DAUGHTER- TIBURCIO COATS, STILL WISHES PATIENT TO REMAIN FULL CODE INCLUDING CHEST COMPRESSIONS. WITNESSED BY FOUNDRY HELPERFRANCIS HAQUE
--- NOTE | 2018-03-31 17:32 | NUR ---
PATIENT NOT TURNED AND REPOSITIONED THROUGHOUT SHIFT DUE TO LOW BP. FAMILY REQUESTING ALSO. BENEFITS AND RISKS EXPLAINED TO THEM
--- NOTE | 2018-03-31 18:13 | NUR ---
PER VIRGIE MAXWELL COOKER SULFITE- OK TO GIVE MEDS THROUGH [employer] VERBAL READBACK DONE
[2018-03-31] MEDS: METRONIDAZOLE 500MG/ NS 100ML 500 MG in PREMIX 1 EA IV SCH (18:24)
--- NOTE | 2018-03-31 19:00 | NUR ---
RN INITIAL NOTES RECEIVED THE PATIENT SEDATED WITH DIPRIVAN @ 40MCG/KG/MIN. INTUBATED AND ON VENT WITH SETTINGS AC 18, TV 450, FIO2 100%, PEEP 0, ETT 7.5/16@LIP. UNABLE TO ACCURATELY MEASURE SATURATION DUE TO POOR PERIPHERAL CIRCULATION UNLESS SPO2 SENSOR IS PRESSED W/C THEN SHOWS SATURATION OF 100%. CURRENTLY SR ON THE MONITOR, HR 90'S. ON LEVO @ 40MCG/MIN AND LATOYA @ 200MCG/MIN. PEG IS CLAMPED. STRINGER INTACT, VERY MINIMAL OUTPUT. RIGHT IJ 3LUMEN WITH NABICARB 150MEQ IN D5W @ 100MLS/HR, FLUSHED AND PATENT, NO S/S OF INFILTRATION/INFECTION, DRESSINGS CDI. BED LOW AND LOCKED, SIDERAILS UP, BILATERAL WRIST RESTRAINTS IN PLACE FOR SAFETY. WILL MONITOR
[2018-03-31] MEDS: PHENYLEPHRINE 80 MG in IV NS 0.9% 250 ML IV PRN ×2 (19:02→22:07)
--- NOTE | 2018-03-31 20:48 | NUR ---
RECEIVED PT INTUBATED WITH 7.5 ETT SECURED AT 16CM AT THE LIP. PT TOLERATING VENT SETTINGS. SX'D FOR SML AMT OF THIN TINGED SECRETIONS. VENT ALARMS SET AND AUDIBLE. AMBU BAG AT BEDSIDE. VENT PLUGGED INTO RED OUTLET. WILL CONTINUE TO MONITOR. Addendum: 03/31/18 at 2049 by JOVAN WILKS RT Amended: Links added.
--- NOTE | 2018-03-31 21:20 | NUR ---
RN NOTES NOTIFIED HAIR BOILER OPERATOR DR JUAREZ OF PATIENT'S CURRENT LACTIC ACID 21.4. ALSO NOTIFIED MD THAT NUCLEAR PLANT INSTRUMENT TECHNICIAN NASRIN AND I HAVE TALKED TO PATIENT'S DAUGHTER TIBURCIO COATS (PRIMARY DECISION MAKER) TO CLARIFY PATIENT CODE STATUS. DAUGHTER TIBURCIO WANTS PATIENT TO BE DNR. SHE ALSO WANTS PATIENT TO BE ON COMFORT MEASURES TOMORROW. CODE STATUS CHANGED TO DNR. AWARE.
[2018-03-31 21:40] LABS: OCCULT BLOOD STOOL POSITIVE (NEGATIVE)
--- NOTE | 2018-03-31 21:54 | NUR ---
RN NOTES THIRD PROJECT SCHEDULER ROSAS WAS UNABLE TO SUCCESSFULLY DRAW BLOOD FOR LAB ORDERED. WILL HAVE A FOURTH PROJECT SCHEDULER TRY AGAIN LATER AT MIDNIGHT.
--- NOTE | 2018-03-31 22:30 | NUR ---
RN NOTES DIPRIVAN HELD DUE TO LOW BP DESPITE 2 MAX PRESSORS. PT REMAINS CALM AND SEDATED
[2018-03-31] MEDS ORDERED: VASOPRESSIN INJ 50 UNIT in IV D5W 497.5 ML IV PRN (23:00)
--- NOTE | 2018-03-31 23:12 | NUR ---
RN NOTES NOTIFIED BRAKE LINING CURER DR JUAREZ THAT PATIENT'S CURRENT SBP IS 70'S. MAX ON BOTH LEVO AND LATOYA. PER MD, START VASOPRESSIN IV.
[2018-03-31] MEDS ORDERED: VASOPRESSIN INJ 20 UNIT/ML VIAL ONE (23:16)
[2018-04-01] VITALS (22 sets, daily range): BP systolic 82–105; BP diastolic 43–53
[2018-04-01] MEDS: VANCOMYCIN HCL 125 MG/2.5 ML ORAL.SUSP PO SCH (00:13)
[2018-04-01] MEDS: PHENYLEPHRINE 80 MG in IV NS 0.9% 250 ML IV PRN ×3 (00:13→04:16)
[2018-04-01] MEDS ORDERED: PHENYLEPHRINE 10 MG/ML VIAL ONE ×3 (00:25→04:00)
[2018-04-01 01:23] LABS: HEMOGLOBIN 9.4 g/dL (11.5-14.8); RED BLOOD CELL COUNT(AUTO) 3.34 MIL/uL (4.0-5.2)
[2018-04-01 01:24] LABS: BASOPHILS % (AUTO) 0.2 % (0.0-2.0); EOSINOPHILS % (AUTO) 0.1 % (0.0-6.0); HEMATOCRIT 29 % (33-45); LYMPHOCYTES % (AUTO) 8.5 % (20.0-44.0); MEAN CORPUSCULAR HGB CONC 32 g/dl (31.0-36.0); MEAN CORPUSCULAR VOLUME 88 fL (82-100); MONOCYTES % (AUTO) 0.4 % (2.0-12.0); NEUTROPHILS % (AUTO) 90.8 % (43.0-81.0); RDW COEFFICIENT OF VARIATION 18.7 (11.5-15.0)
[2018-04-01 01:28] LABS: NEUTROPHILS % (MANUAL) 63 (42-76); PLATELET COUNT (AUTO) 28 /CMM (150-450); WHITE BLOOD COUNT (AUTO) 39.1 K/uL (4.3-11.0)
[2018-04-01 01:29] LABS: BAND % (MANUAL) 27 % (0.0-5.0); LYMPHOCYTES % (MANUAL) 5 % (16-48); METAMYELOCYTES % 4 % (0-0); MYELOCYTES % 1 % (0-0)
[2018-04-01 01:55] LABS: CALCIUM, SERUM 6.9 mg/dL (8.5-10.1); CHLORIDE 92 mmol/L (98-107); POTASSIUM 5.1 mmol/L (3.5-5.1); SODIUM SERUM 129 mmol/L (136-145); UREA NITROGEN, BLOOD 42 mg/dL (7-18)
[2018-04-01 02:05] LABS: CARBON DIOXIDE 6 mmol/L (21-32)
[2018-04-01] MEDS: NOREPINEPHRINE 16 MG in IV D5W 500 ML IV PRN (02:12)
[2018-04-01] MEDS: Sodium Bicarbonate 150 MEQ in IV D5W 1,000 ML IV PRN (04:03)
[2018-04-01] MEDS: METRONIDAZOLE 500MG/ NS 100ML 500 MG in PREMIX 1 EA IV SCH (04:03)
[2018-04-01 04:27] LABS: BASOPHILS % (AUTO) 0.1 % (0.0-2.0); EOSINOPHILS % (AUTO) 6.5 % (0.0-6.0); HEMATOCRIT 22 % (33-45); HEMOGLOBIN 7.5 g/dL (11.5-14.8); LYMPHOCYTES # (AUTO) 1.9 /CMM (0.8-4.8); MEAN CORPUSCULAR HGB CONC 34 g/dl (31.0-36.0); MEAN CORPUSCULAR VOLUME 98 fL (82-100); MONOCYTES # (AUTO) 0.2 /CMM (0.1-1.30); MONOCYTES % (AUTO) 0.4 % (2.0-12.0); NEUTROPHILS # (AUTO) 33.2 /CMM (1.8-8.9); RDW COEFFICIENT OF VARIATION 18.5 (11.5-15.0); RED BLOOD CELL COUNT(AUTO) 2.27 MIL/uL (4.0-5.2)
[2018-04-01 04:51] LABS: ALANINE AMINOTRANSFERASE 871 U/L (12-78); ALKALINE PHOSPHATASE 131 U/L (46-116); ASPARTATE AMINOTRANSFERASE 1531 U/L (15-37); BILIRUBIN,TOTAL 2.2 mg/dL (0.2-1.0); CALCIUM, SERUM 6.7 mg/dL (8.5-10.1); CHLORIDE 92 mmol/L (98-107); CREATININE 2.9 mg/dL (0.6-1.3); POTASSIUM 5.2 mmol/L (3.5-5.1); SODIUM SERUM 127 mmol/L (136-145); TOTAL PROTEIN, SERUM 3.1 g/dL (6.4-8.2); UREA NITROGEN, BLOOD 42 mg/dL (7-18)
[2018-04-01 04:52] LABS: TROPONIN I 0.629 ng/mL (0.00-0.056)
[2018-04-01 04:58] LABS: CARBON DIOXIDE 7 mmol/L (21-32)
[2018-04-01 04:59] LABS: GLUCOSE 557 mg/dL (74-106)
--- NOTE | 2018-04-01 05:03 | NUR ---
@0500 PT . VENT TURNED OFF. FAMILY AT BEDSIDE. RN AND ONCOLOGY ACCOUNT SPECIALIST AT BEDSIDE. Addendum: 04/01/18 at 0505 by JOVAN WILKS RT Amended: Links added.
--- NOTE | 2018-04-01 05:38 | NUR ---
RN NOTES 0500 - PATIENT HEART RHYTHM NOTED PEA. NO PULSES CONFIRMED VIA DOPPLER. PUPILS FIXED AND DILATED. NO GAG REFLEX. NO REACTION TO DEEP PAIN STIMULATION. PRONOUNCED BY PERSONAL PROPERTY APPRAISER ANNIE AND MYSELF. BONNIE DEY AT BEDSIDE 0502 - RN TERMINAL SYSTEM OPERATOR [place] NOTIFIED 0503 - ADMITTING JOHN NOTIFIED 0505 - ON-CALL DR JUAREZ NOTIFIED 0516 - BUSINESS BANKING MANAGER NOTIFIED. BODY RELEASED BY BUSINESS BANKING MANAGER 0518 - [employer] (GIANNI) NOTIFIED. CASE # [id number] PER DAUGHTER TIBURCIO, FAMILY HAS MORTUARY ARRANGEMENTS SET FOR THE PATIENT. DAUGHTER WILL CONTACT MORTUARY AND ACQUIRE MORE INFORMATION.
[2018-04-01 05:51] LABS: PLATELET COUNT (AUTO) 8 /CMM (150-450); WHITE BLOOD COUNT (AUTO) 37.7 K/uL (4.3-11.0)
--- NOTE | 2018-04-01 05:56 | NUR ---
GRAIN ELEVATOR CLERK - PT. WAS PRONOUNCED AT 5:00 AM. BILAT. PUPILS ARE FIXED & DILATED. NO PULSES PALPATED X 4 EXT. BILAT. GROIN PULSE CHECK BY DOPPLER WAS NOT AUDIBLE. NO CORNEAL, GAG OR COUGH REFLEXES NOTED. NO MOVEMENT NOTED W/TACTILE STIMULUS TO BILAT. PLANTAR SOLES & BILAT. NAILBEDS. HEART MONITOR SHOWED PEA BEFORE SUSTAINED ASYSTOLE. PT'S DAUGHTER-TIBURCIO AT BEDSIDE. DAUGHTER GIVEN HOUSE [employer]'S NUMBER TO CALL LATER TODAY W/INFORMATION RE: MORTUARY & CEMETARY. PT. GIVEN BEDBATH PRIOR TO WRAPPING IN [place]. GOD BLESS.
[2018-04-01] MEDS ORDERED: LEVOFLOXACIN 250 MG /D5W 50 ML 50 ML IV SCH (06:00)
[2018-04-01 06:02] LABS: BAND % (MANUAL) 30 % (0.0-5.0); LYMPHOCYTES % (MANUAL) 6 % (16-48); METAMYELOCYTES % 9 % (0-0); MYELOCYTES % 3 % (0-0)
[2018-04-01 06:03] LABS: EOSINOPHILS % (MANUAL) 3 % (0-4); NEUTROPHILS % (MANUAL) 49 (42-76)
== END 2018-04-01 05:00 | disposition expired | DRG 871 ==
LOC: ER 04:11 → ICU 06:00
PROVIDERS: ADMIT Internal Medicine; ATTEND Hospitalist
PROC: 5A1935Z Respiratory Ventilation, Less than 24 Consecutive Hours (ICD-10-PCS; principal; 2018-03-31)
PROC: 0BH17EZ Insertion of Endotracheal Airway into Trachea, Via Natural or Artificial Opening (ICD-10-PCS; 2018-03-31)
DX: A41.9 Sepsis, unspecified organism (principal); R65.21 Severe sepsis with septic shock; R53.2 Functional quadriplegia; N17.0 Acute kidney failure with tubular necrosis; I21.4 Non-ST elevation (NSTEMI) myocardial infarction; G92 Toxic encephalopathy; J96.02 Acute respiratory failure with hypercapnia; J96.01 Acute respiratory failure with hypoxia; N39.0 Urinary tract infection, site not specified; E87.2 Acidosis; Z66 Do not resuscitate; Z51.5 Encounter for palliative care; Z89.511 Acquired absence of right leg below knee; E11.51 Type 2 diabetes mellitus with diabetic peripheral angiopathy without gangrene; F20.9 Schizophrenia, unspecified; G30.9 Alzheimer's disease, unspecified; F02.80 Dementia in other diseases classified elsewhere, unspecified severity, without behavioral disturbance, psychotic disturbance, mood disturbance, and anxiety; Z88.0 Allergy status to penicillin; Z79.899 Other long term (current) drug therapy; K57.30 Diverticulosis of large intestine without perforation or abscess without bleeding; K21.9 Gastro-esophageal reflux disease without esophagitis; L89.159 Pressure ulcer of sacral region, unspecified stage; L89.629 Pressure ulcer of left heel, unspecified stage; R13.10 Dysphagia, unspecified; Z86.19 Personal history of other infectious and parasitic diseases; Z87.440 Personal history of urinary (tract) infections; Z86.14 Personal history of Methicillin resistant Staphylococcus aureus infection; Z83.3 Family history of diabetes mellitus; I11.0 Hypertensive heart disease with heart failure; I50.9 Heart failure, unspecified; Z79.4 Long term (current) use of insulin; E86.0 Dehydration; E83.52 Hypercalcemia; E78.5 Hyperlipidemia, unspecified; E11.42 Type 2 diabetes mellitus with diabetic polyneuropathy; D69.6 Thrombocytopenia, unspecified; Z93.1 Gastrostomy status; M85.9 Disorder of bone density and structure, unspecified; I70.0 Atherosclerosis of aorta; L89.520 Pressure ulcer of left ankle, unstageable; R23.4 Changes in skin texture; I25.2 Old myocardial infarction
CPT/HCPCS: 31720; 36415; 36600; 71045-TC; 80048-TC; 80053-TC; 80076-TC; 81000-TC; 82272-TC; 82533; 82803-TC; 83605-TC; 83735-TC; 84100-TC; 84484-TC; 85025-TC; 85730-TC; 87040-TC; 87070-TC; 87081-TC; 87086-TC; 87186-TC; 94003-TC; 94640-TC; 94760-TC; A4216; A4606; A6403; C1751; C9113; J0330; J0696; J1720; J1956; J2185; J2248; J2370; J2405; J3370; J3490; J7030; J7040; J7042; J7050; J7060; J7070; Z7610